=== PATIENT | female | born 1955 | race Caucasian/White ===

== ENCOUNTER 2023-05-28 20:53 | Emergency (ER) | payer OTHER, SELFPAY ==
[2023-05-28 21:03] VITALS: BP 136/84
[2023-05-28 21:20] LABS: % Basophils 0.8 % (0-2); % Eosinophils 4.8 % (0-6); % Immature Granulocytes 0.2 % (0-0.5); % Lymphocytes 39.1 % (20.5-51.1); % Neutrophils 48.1 % (42.2-75.2); Absolute Basophils 0.1 10^3/uL (0-0.2); Absolute Eosinophils 0.4 10^3/uL (0-0.7); Absolute Lymphocytes 3.3 10^3/uL (1.2-3.4); Absolute Monocytes 0.6 10^3/uL (0.1-0.6); Hematocrit 45.5 % (37.0-47.0); Hemoglobin 15.1 g/dL (12.0-16.0); Mean Corp Hgb Conc. 33.2 g/dL (33.0-37.0); Mean Corpuscular Hgb 29.7 pg (27.0-31.0); Mean Corpuscular Volume 89.4 fL (81.0-99.0); Nucleated Red Blood Cells % 0 %; Platelet Count 334 10^3/uL (130-400); Red Blood Cell Count 5.09 10^6/uL (4.20-5.40); Red Cell Dist. Width 13.7 % (11.5-14.5); White Blood Cell Count 8.4 10^3/uL (4.8-10.8)
[2023-05-28 21:35] LABS: ALT (SGPT) 28 U/L (0-35); AST (SGOT) 30 U/L (14-36); Albumin 4.5 g/dl (3.5-5.0); Alkaline Phosphatase 60 U/L (38-126); Blood Urea Nitrogen 19 mg/dl (7-17); Calcium 9.5 mg/dl (8.4-10.2); Carbon Dioxide 32 mmol/L (22-30); Chloride 102 mmol/L (98-107); Glucose 86 mg/dl (70-99); Potassium 4.3 mmol/L (3.5-5.1); Sodium 137 mmol/L (135-145); Total Bilirubin 0.5 mg/dl (0.2-1.3); Total Protein 7.2 g/dl (6.3-8.2); eGFR > 60.00
[2023-05-28 21:44] LABS: Troponin I < 0.012 ng/ml
[2023-05-28 22:14] VITALS: BP 128/76
--- NOTE | 2023-05-28 22:24 | ED.GENMED ---
History of Present Illness
<JUANITO Hernández - Last Filed: 05/29/23 02:09>
General
Chief Complaint: Chest Pain
Source: patient
Exam Limitations: none
Time Seen by Provider: 05/28/23 22:07
Nursing documentation reviewed up to this point in time: agreed with
Travel History
Have you had any contact with someone who has COVID-19?: No
Do you have any symptoms of coronavirus? Fever > 100 degrees, chills, cough, shortness of breath, sore throat, loss of taste or smell, muscle aches, or headache?: No
History of Present Illness
History of Present Illness:
Pt is a 67yo female with PMH of CVA (unknown date) and hypothyroidism presents today with chest pain and palpitations. Pt states she was driving around 5pm tonight when she suddenly developed left sided chest 'tightness'. She describes it as 4/10
pain that radiates to her back and left arm and comes and goes randomly. She has not taken any medication for pain. Pt also has been feeling episodes of 'skipped beats' along with lightheadedness, generalized weakness, and SOB. These episodes vary
in length and come and go randomly. Pt notes that she has been more stressed recently and began a new exercise class yesterday. Denies prior episodes of chest pain, headache, LOC, localized weakness, abdominal pain, N/V, constipation, diarrhea,
recent illnesses or fever. Pt has full ROM of shoulders and neck with no pain. Slight tenderness to palpation of left chest and left upper back.
Past History
<JUANITO Hernández - Last Filed: 05/29/23 02:09>
Past History
ED Past Medical History: Valvular disease (Mitral valve prolapse ), Hypothyroidism and Other (Anemia, menometrorrhagia )
ED Past Surgical History: Other (Right breast lumpectomy )
Social History
Tobacco: Non-smoker
Alcohol: None
Drug: None
Personal:
Living: with family
Employment: Employed
Review of Systems
<JUANITO Hernández - Last Filed: 05/29/23 02:09>
Review of Systems
Allergies reviewed?: Yes
All Other Systems: ROS reviewed and negative except as documented in HPI and ROS
Phy Exam
<JUANITO Hernández - Last Filed: 05/29/23 02:09>
General Physical Exam
General Presentation: well appearing and no apparent distress
General age: appears stated age
General Skin: warm and dry
General Habitus: normal
General Mental: alert
General Hydration: appears well hydrated
ENT Exam
ENT Exam: pharynx normal, neck supple, normocephalic and swallowing well
Eye Exam
Eye Exam: PERRL, EOMI and conjunctiva normal
Cardiovascular Exam
Cardiovascular Exam: regular rate/rhythm, no edema, no gallop, no murmur and normal peripheral pulses
Pulmonary Exam
Pulmonary Exam: lungs clear, no respiratory distress, no rales, no crackles, no rhonchi, no wheezing and no cough
Gastrointestinal Exam
Gastrointestinal Exam: normal bowel sounds, non tender, soft and non distended
Neurological Exam
Neurological Exam: alert, oriented x3, no motor deficits and speech normal
Musculoskeletal Exam
Musculoskeletal Exam: full ROM (of shoulders and neck) and other (slight tenderness to palpation of left side of upper chest and left upper back. No bony tenderness)
Skin Exam
Skin Exam: normal color and warm/dry
Psychiatric Exam
Psychiatric Exam: normal mood/affect
Scores
<JUANITO Hernández - Last Filed: 05/29/23 02:09>
Heart Score for Chest Pain Patients
STEMI patient?: No
History: Slightly or Non-Suspicious
ECG: Normal
Age: >/= 65 years
Risk Factors: 1 or 2 Risk Factors
Troponin: </= Normal Limit
Heart Score for Chest Pain Patients: 3
Heart Score Risk: 2.5% MACE over next 6 weeks
Course
<JUANITO Hernández - Last Filed: 05/29/23 02:09>
Orders/Labs/Results
Orders:
Orders
05/28/23 20:54
Electrocardiogram (*1) Urgent
Reason for Study: Chest Pain
EKG- Treatment ONCE
05/28/23 21:12
CMP [Comprehensive Metabolic Panel] Urgent
Complete Blood Count/With Diff Urgent
Troponin I Urgent
05/28/23 22:58
0.9% Sodium Chloride 1000 ml [Nss] 1,000 ml IV BOLUS
05/28/23 23:13
TSH Reflex To Free T4 Urgent
05/29/23 00:01
CR Chest - 2 Views Urgent
Reason For Exam: cp
05/29/23 00:23
Troponin I Urgent
05/29/23 00:36
Acetaminophen [Tylenol] 650 mg PO NOW STA
05/29/23 00:42
Acetaminophen [Tylenol] 650 mg .ROUTE .STK-MED ONE
Abnormal Lab Results
05/28/23
21:12
Carbon Dioxide 32 H mmol/L
(22-30)
BUN 19 H mg/dl
(7-17)
05/28/23 21:12
05/28/23 21:12
Vital Signs
Initial and Last Documented VS:
Initial Vital Signs
Temp Pulse Resp BP Pulse Ox
97.7 F 77 18 136/84 97
05/28/23 21:03 05/28/23 21:03 05/28/23 21:03 05/28/23 21:03 05/28/23 21:03
Last Documented Vital Signs
Temp Pulse Resp BP Pulse Ox
97.7 F 65 13 101/59 96
05/28/23 21:03 05/29/23 01:45 05/29/23 01:45 05/29/23 01:00 05/29/23 01:45
<Tae Delgado, DO - Last Filed: 05/29/23 01:33>
Orders/Labs/Results
Orders:
Orders
05/28/23 20:54
Electrocardiogram (*1) Urgent
Reason for Study: Chest Pain
EKG- Treatment ONCE
05/28/23 21:12
CMP [Comprehensive Metabolic Panel] Urgent
Complete Blood Count/With Diff Urgent
Troponin I Urgent
05/28/23 22:58
0.9% Sodium Chloride 1000 ml [Nss] 1,000 ml IV BOLUS
05/28/23 23:13
TSH Reflex To Free T4 Urgent
05/29/23 00:01
CR Chest - 2 Views Urgent
Reason For Exam: cp
05/29/23 00:23
Troponin I Urgent
05/29/23 00:36
Acetaminophen [Tylenol] 650 mg PO NOW STA
05/29/23 00:42
Acetaminophen [Tylenol] 650 mg .ROUTE .STK-MED ONE
Abnormal Lab Results
05/28/23
21:12
Carbon Dioxide 32 H mmol/L
(22-30)
BUN 19 H mg/dl
(7-17)
05/28/23 21:12
05/28/23 21:12
Vital Signs
Initial and Last Documented VS:
Initial Vital Signs
Temp Pulse Resp BP Pulse Ox
97.7 F 77 18 136/84 97
05/28/23 21:03 05/28/23 21:03 05/28/23 21:03 05/28/23 21:03 05/28/23 21:03
Last Documented Vital Signs
Temp Pulse Resp BP Pulse Ox
97.7 F 65 13 101/59 96
05/28/23 21:03 05/29/23 01:45 05/29/23 01:45 05/29/23 01:00 05/29/23 01:45
<JUANITO Hernández - Last Filed: 05/29/23 02:09>
MDM/Problems Addressed
Differential Diagnosis Includes:
musculoskeletal pain/muscle strain, unstable angina, stable angina, NSTEMI, PE, afib or other paroxysmal arrhythmia, pericarditis, CVA
MDM/Problems Addressed:
Pt is a 67 yo female with new onset intermittent 4/10 left sided chest pain, palpitations, SOB, and lightheadedness
<JUANITO Hernández - Last Filed: 05/29/23 02:09>
*Critical Care Note
Total Time (30-74mins, 75-104mins- exclusive of procedures): Not Applicable
<JUANITO Hernández - Last Filed: 05/29/23 02:09>
Update Note
Update Note:
05/29/2023 0034 AM: Pt resting comfortably in bed. States that she has developed a headache which is not uncommon and would like some tylenol to relieve it. Explained that lab results and CXR were not concerning for cardiac causes of her chest pain
and that we are waiting on another troponin test.
ED Attending Note
<JUANITO Hernández - Last Filed: 05/29/23 02:09>
-
Portions of this chart may have been created with voice recognition software.� Occasional wrong word or��sound alike� substitutions may have occurred due to the inherent limitations of voice recognition software.
<Tae Delgado DO - Last Filed: 05/29/23 01:33>
ED Attending Note
Patient seen and examined by attending physician: Yes
I performed the substantive portion of visit, reviewed & personally made and approve the management plan that is documented in note by myself or BRETT.: Yes
ED Attending Note:
This a pleasant 67-year-old female who presents with chest pain and palpitations that began around 5 PM this evening. Patient states that she developed left-sided chest tightness around 5 PM. She states that it radiated to her back and left arm.
It is intermittent in nature. Patient has a past medical history of mitral valve prolapse. She did see Dr. Osorio for it but was cleared. She states that further testing showed that she did not have MVP. Patient states that she has been feeling
'skipped beats '. Patient states that she only drank 24 ounces of fluid today. She normally drinks more. She does consume caffeine and 'mushroom coffee '. Patient admits to being under more stress than normal lately. She states that she began a
new exercise program recently. Patient denies fevers, chills, nausea, vomiting, shortness of breath, or abdominal pain. Patient was seen in conjunction with the PA student. I have reviewed and agree with the history and treatment plan presented.
On my independent physical exam, patient is awake, alert, and oriented x3, minimal acute distress. No current chest pain. Heart is regular rate and rhythm. No murmur heard on exam. Lungs are clear to auscultation bilaterally no wheezes rales or
rhonchi present. Abdomen soft and nontender. Nondistended. Moves all 4 extremities. Good distal pulses. Skin is warm and dry.
Vital signs are stable. Patient not hypoxic
Nursing note reviewed. I agree with nursing documentation up to this point in time.
Home Meds and allergies reviewed.
NUMBER AND COMPLEXITY OF PROBLEMS ADDRESSED AT THE ENCOUNTER
� Chronic conditions affecting care: Previous CVA, possible MVP, stress
� Acute Exacerbation and/or Progression of Chronic Illness:
� Differential Diagnosis includes: Palpitations, A-fib, dehydration, ACS
AMOUNT AND/OR COMPLEXITY OF DATA TO BE REVIEWED AND ANALYZED
I performed an independent evaluation of the following and my interpretation is:
EKG: EKG shows normal sinus rhythm rate 84 with normal intervals, normal axis. PACs are present. When compared with previous EKG dated May 17, 2022, PVCs are now present.
CT:
X-rays:
Ultrasound:
Laboratory Studies:
Other:
Review of other/old records:
Clinical information was obtained by an independent historian:
Prescriptions/Medications Considered but not given:
Further testing considered but not performed:
RISK OF COMPLICATIONS AND/OR MORBIDITY OR MORTALITY OF PATIENT MANAGEMENT
Social determinants of health affecting care: Good Social Support
Discussion with other providers:
Escalation of care including admission/observation vs risk of discharge considered:
CRITICAL CARE NOTE:
Total Time (exclusive of procedures):
Update:
Discharge Plan
Departure
Patient Disposition: Home (Routine Discharge)
Date of Disposition: 05/29/23
Time of Disposition: 01:37
Patient with high blood pressure during this ER visit?: Yes
Condition: Good
Covid-19: Not Applicable
Discharge Problem:
Chest pain
Instructions: Chest Pain DCA Follow Up, BLOOD PRESSURE
Prescriptions:
No Action
levothyroxine 75 mcg Tablet
75 mcg PO DAILY
Imitrex
1 dose PO DAILY PRN (Reason: migraine)
Patient Comments:
last taken about 6 months ago
calcium
1 tab PO DAILY
multivitamin
1 tab PO DAILY
vitamin E
1 cap PO DAILY
[id number]
1 tab PO DAILY
Referrals:
Priscilar,Shawn, DO [Active] -
NONE,* [Active] - None
Activity Restrictions/Additional Instructions:
It was a pleasure meeting you and taking part in your care. We hope for your continued healing and wellness.
Please read discharge instructions in their entirety. However, they are for general education and may not describe your exact diagnosis at discharge. Information on your ER visit and medical conditions were discussed with you along with appropriate
follow up information...
If indicated, please take your medications as instructed and indicated on discharge paperwork.
Please schedule a follow up appointment as directed. Call to schedule an appointment
Please return to the emergency department with ANY change in, persisting, or worsening of symptoms. If any of your symptoms do not improve, or persist, or become more severe within 6-12 hours, please return to the emergency department for further
care.
Please return to the emergency department if you develop a headache, neck pain/stiffness, fever greater than 100.4F, chest pain, shortness of breath, persistent nausea, vomiting, slurred speech, difficulty walking, numbness/tingling, weakness, signs
of infection or any other symptoms that are worrisome to you.
If you have any questions or concerns please do not hesitate to call the Hospital at or E-mail me directly at [email or web address]
Interventions
Interventions:
*Risk Screen - Suicide Last Done: 05/28/23 21:03
*General Assessment Last Done: 05/28/23 21:03
*ED COVID-19 Vaccine History Last Done: 05/28/23 21:03
*Nursing Disposition Last Done: 05/29/23 02:04
ED- Cardiac Assessment Last Done: 05/28/23 22:25
Discharge Date and Time
Discharge Date/Time: 05/29/23 02:05
[2023-05-28 23:00] VITALS: BP 115/65
[2023-05-28] MEDS: NSS 1000 IV (23:16)
[2023-05-29 00:08] LABS: TSH Reflex To Free T4 4.31 uIU/ml (0.47-4.68)
[2023-05-29] MEDS: TYLENOL 650 MG PO (00:44)
[2023-05-29 00:46] VITALS: BP 105/67
[2023-05-29 00:53] LABS: Troponin I < 0.012 ng/ml
[2023-05-29 01:00] VITALS: BP 101/59
== END 2023-05-29 02:05 | disposition home or self-care (01) ==
LOC: EMR 20:53
PROVIDERS: Emergency Medicine; EMERGENCY PHYSICIAN Student in an Organized Health Care Education/Training Program; FAMILY PHYSICIAN Family Medicine
DX: R07.89 Other chest pain (principal); R00.2 Palpitations; R53.1 Weakness; R06.02 Shortness of breath; M79.602 Pain in left arm; M54.9 Dorsalgia, unspecified; R42 Dizziness and giddiness; R51.9 Headache, unspecified; I34.1 Nonrheumatic mitral (valve) prolapse; E03.9 Hypothyroidism, unspecified; D64.9 Anemia, unspecified; R03.0 Elevated blood-pressure reading, without diagnosis of hypertension; Z86.73 Personal history of transient ischemic attack (TIA), and cerebral infarction without residual deficits; Z88.0 Allergy status to penicillin; Z88.2 Allergy status to sulfonamides
CPT/HCPCS: 99284; 96360; 71046; 80053; 84443; 84484; 85025; 93005

== ENCOUNTER → 2023-06-25 16:01 | Outpatient (REF) | payer OTHER, SELFPAY | LOC: DHCBS HW 16:01 | PROVIDERS: ATTENDING PHYSICIAN Nuclear Medicine Nuclear Cardiology; FAMILY PHYSICIAN Family Medicine | DX: R00.2 Palpitations (principal); R55 Syncope and collapse; I49.3 Ventricular premature depolarization; R07.9 Chest pain, unspecified | CPT/HCPCS: 93306 ==

== ENCOUNTER → 2023-07-02 13:32 | Outpatient (REF) | payer OTHER, SELFPAY | LOC: RCS 13:32 | PROVIDERS: ATTENDING PHYSICIAN Nuclear Medicine Nuclear Cardiology; FAMILY PHYSICIAN Family Medicine | DX: R00.2 Palpitations (principal); R55 Syncope and collapse; I49.3 Ventricular premature depolarization; R07.9 Chest pain, unspecified | CPT/HCPCS: 93017; 93350 ==

== ENCOUNTER 2024-06-24 16:05 | Emergency (ER) | payer OTHER, SELFPAY ==
[2024-06-24 16:17] VITALS: BP 159/90
[2024-06-24 16:48] LABS: % Basophils 0.7 % (0-2); % Eosinophils 1.9 % (0-6); % Immature Granulocytes 0.6 % (0-0.5); % Lymphocytes 32.1 % (20.5-51.1); % Monocytes 5.6 % (1.7-9.3); % Neutrophils 59.1 % (42.2-75.2); Absolute Basophils 0.1 10^3/uL (0-0.2); Absolute Eosinophils 0.2 10^3/uL (0-0.7); Absolute Immature Granulocytes 0.1 10^3/uL (0-0.05); Absolute Lymphocytes 2.8 10^3/uL (1.2-3.4); Absolute Monocytes 0.5 10^3/uL (0.1-0.6); Absolute Neutrophils 5.2 10^3/uL (1.4-6.5); Hematocrit 45.3 % (37.0-47.0); Hemoglobin 14.6 g/dL (12.0-16.0); Mean Corp Hgb Conc. 32.2 g/dL (33.0-37.0); Mean Corpuscular Hgb 30.4 pg (27.0-31.0); Mean Corpuscular Volume 94.2 fL (81.0-99.0); Mean Platelet Volume 9.6 fL (7.4-10.4); Nucleated Red Blood Cells % 0 %; Platelet Count 333 10^3/uL (130-400); Red Blood Cell Count 4.81 10^6/uL (4.20-5.40); White Blood Cell Count 8.8 10^3/uL (4.8-10.8)
[2024-06-24 17:04] LABS: ALT (SGPT) 32 U/L (0-35); AST (SGOT) 25 U/L (14-36); Albumin 4.4 g/dl (3.5-5.0); Alkaline Phosphatase 65 U/L (38-126); Blood Urea Nitrogen 16 mg/dl (7-17); Calcium 9.3 mg/dl (8.4-10.2); Carbon Dioxide 30 mmol/L (22-30); Chloride 101 mmol/L (98-107); Glucose 112 mg/dl (70-99); Potassium 4.2 mmol/L (3.5-5.1); Sodium 138 mmol/L (135-145); Total Bilirubin 0.3 mg/dl (0.2-1.3); eGFR > 60.00
[2024-06-24 17:11] LABS: Troponin I < 0.012 ng/ml
[2024-06-24 18:16] VITALS: BP 156/94
[2024-06-24 18:34] VITALS: BP 157/90
--- NOTE | 2024-06-24 18:34 | ED.GENMED ---
History of Present Illness
General
Chief Complaint: Chest Pain
Time Seen by Provider: 06/24/24 18:24
History of Present Illness
History of Present Illness:
Patient presents to the emergency department with intermittent episodes of left-sided chest pain. Symptoms have been ongoing for 4 days. They are nonexertional. Last night she thought they may have radiated neck. Currently she is pain-free.
Past History
Past History
ED Past Medical History: Valvular disease (Mitral valve prolapse ), Hypothyroidism and Other (Anemia, menometrorrhagia )
ED Past Surgical History: Other (Right breast lumpectomy )
Social History
Tobacco: Non-smoker
Alcohol: None
Drug: None
Personal:
Living: with family
Employment: Employed
Phy Exam
Physical Exam
Physical Exam:
GENERAL APPEARANCE: NAD, well developed/ well nourished
EYES lids/conjunctiva normal
EARS/NOSE/THROAT Mucous membranes moist, uvula midline without oral pharyngeal erythema, exudate or swelling
HEAD/NECK normocephalic atraumatic, neck is supple.
RESPIRATORY respiratory effort normal, speaks in full sentences, no accessory muscle use. Lungs clear to auscultation without rhonchi, wheezes, rales
CARDIAC Regular rate and rhythm, no edema.
ABDOMINAL Soft, ND/NT. No pulsatile masses on exam, rebound tenderness, Ramírez sign or pain over Mcburney's point.
MUSCLES/EXTREMITIES No abnormal range of motion, no swelling.
SKIN Warm, pink and dry. No rashes
NEUROLOGICAL Speech is clear and appropriate. Normal level of consciousness. 5/5 strength in all extremities.
PSYCH Normal mood and affect. Judgement/competence is appropriate
Scores
Heart Score for Chest Pain Patients
STEMI patient?: Not applicable
Course
Orders/Labs/Results
Orders:
Orders
06/24/24 16:07
ECG [Electrocardiogram (*1)] Urgent
Reason for Study: Chest Pain
EKG- Treatment ONCE
06/24/24 16:40
Complete Blood Count/With Diff Urgent
Comprehensive Metabolic Panel Urgent
Troponin I Urgent
06/24/24 19:07
Troponin I Urgent
Abnormal Lab Results
06/24/24
16:40
MCHC 32.2 L g/dL
(33.0-37.0)
Abs Immat Gran (auto) 0.1 H 10^3/uL
(0-0.05)
Immature Gran % 0.6 H %
(0-0.5)
Glucose 112 H mg/dl
(70-99)
06/24/24 16:40
06/24/24 16:40
Vital Signs
Initial and Last Documented VS:
Initial Vital Signs
Temp Pulse Resp BP Pulse Ox
97.6 F 78 18 159/90 97
06/24/24 16:17 06/24/24 16:17 06/24/24 16:17 06/24/24 16:17 06/24/24 16:17
Last Documented Vital Signs
Temp Pulse Resp BP Pulse Ox
97.6 F 76 13 126/80 97
06/24/24 16:17 06/24/24 20:00 06/24/24 20:00 06/24/24 20:00 06/24/24 16:17
*Critical Care Note
Total Time (30-74mins, 75-104mins- exclusive of procedures): Not Applicable
ED Attending Note
ED Attending Note
ED Attending Note:
Patient with intermittent nonexertional chest pain. Low risk by heart score. Troponin is negative EKG without ischemic changes. Will send to set troponin. Likely stable for close outpatient with cardiology
-
Portions of this chart may have been created with voice recognition software.� Occasional wrong word or��sound alike� substitutions may have occurred due to the inherent limitations of voice recognition software.
Discharge Plan
Departure
Patient Disposition: Home (Routine Discharge)
Date of Disposition: 06/24/24
Time of Disposition: 19:57
Patient with high blood pressure during this ER visit?: Yes
Discharge Problem:
Chest pain
Instructions: Chest Pain NON-[facility] Nursing Home Physician Follow Up
Prescriptions:
No Action
levothyroxine 75 mcg Tablet
75 mcg PO DAILY
Imitrex
1 dose PO DAILY PRN (Reason: migraine)
Patient Comments:
last taken about 6 months ago
calcium
1 tab PO DAILY
multivitamin
1 tab PO DAILY
vitamin E
1 cap PO DAILY
[id number]
1 tab PO DAILY
Referrals:
Mary Ann Ward MD [Family Provider] -
Interventions
Interventions:
*Risk Screen - Suicide Last Done: 06/24/24 16:17
*General Assessment Last Done: 06/24/24 16:17
*Neglect/Abuse Screening Last Done: 06/24/24 20:19
ED- Fall Risk Assessment Last Done: 06/24/24 19:00
*ED COVID-19 Vaccine History Last Done: 06/24/24 16:17
*Nursing Disposition Last Done: 06/24/24 20:19
ED- Cardiac Assessment Last Done: 06/24/24 19:00
Discharge Date and Time
Discharge Date/Time: 06/24/24 20:20
Print Language: [place]
[2024-06-24 19:00] VITALS: BP 145/97; BMI 21.1
[2024-06-24 19:44] LABS: Troponin I < 0.012 ng/ml
[2024-06-24 20:00] VITALS: BP 126/80
== END 2024-06-24 20:20 | disposition home or self-care (01) ==
LOC: EMR 16:05
PROVIDERS: Emergency Medicine; EMERGENCY PHYSICIAN Emergency Medicine; FAMILY PHYSICIAN Family Medicine
DX: R07.89 Other chest pain (principal); E03.9 Hypothyroidism, unspecified; I34.1 Nonrheumatic mitral (valve) prolapse
CPT/HCPCS: 99284; 80053; 84484; 85025; 93005